=== PATIENT | female | born 1980 | race Hispanic/Latino ===

== ENCOUNTER 2025-06-06 08:33 | Outpatient (CLI) | payer OTHER ==
[2025-06-06 10:17] LABS: Hematocrit 40.5 % (34.9-44.5); Hemoglobin 12.2 g/dL (12.0-15.5); Mean Corpuscular Hemoglobin 24.7 pg (27.0-33.0); Mean Corpuscular Volume 82.0 fL (81.6-98.3); Platelet Count 431 10x3/uL (150-450); Red Blood Cell (RBC) Count 4.94 10x6/uL (3.90-5.03); White Blood Cell (WBC) Count 7.58 10x3/uL (3.5-10.5)
[2025-06-06 10:19] LABS: Pregnancy Test - Urine (BHCG) Negative (Negative); Pregu Control Bar Appear? YES (CONTROL BAR)
[2025-06-06 10:20] LABS: Pregu Control Background? CLEAR/WHITE (CLR/WHITE)
[2025-06-06 10:34] LABS: Anion Gap 11 mmol/L (10-20); BUN (Urea Nitrogen) 17 mg/dL (7.0-18.7); Calc. Creatinine Clearance 0 mL/min (70-130); Calcium 9.3 mg/dL (7.8-10.44); Carbon Dioxide 26 mmol/L (22-29); Chloride 106 mmol/L (98-107); Glucose 89 mg/dL (70-105); Potassium 4.4 mmol/L (3.5-5.1); Sodium 139 mmol/L (136-145)
== END 2025-06-06 08:34 | disposition home or self-care (01) ==
LOC: CSHLAB 08:33
PROVIDERS: ATTEND Obstetrics & Gynecology
DX: Z01.818 Encounter for other preprocedural examination (principal); R10.2 Pelvic and perineal pain; D25.9 Leiomyoma of uterus, unspecified
CPT/HCPCS: 80048; 81025; 85027; 93005; 93010

== ENCOUNTER 2025-06-16 09:15 | Observation (INO) | payer OTHER ==
[2025-06-06 09:15] VITALS: BMI 39.0
[2025-06-16] MEDS ORDERED: Heparin 5,000 UNITS/ML VIAL ONE (09:40)
[2025-06-16] MEDS ORDERED: PROPOFOL 20 ML ONE (10:42)
[2025-06-16] MEDS ORDERED: Bupivacaine HCl 0.5%/Epinephrine 1:200,000/PF 30 ml Vial ONE (11:22)
[2025-06-16] MEDS ORDERED: CEFAZOLIN 2 GM VIAL ONE (12:11)
[2025-06-16] MEDS ORDERED: PHENYLEPHRINE-NS 100 MCG/ML 10 ML SYRINGE ONE (13:09)
[2025-06-16] MEDS ORDERED: Ondansetron PF 4 MG/2 ML Vial ONE (13:21)
[2025-06-16] MEDS ORDERED: SUGAMMADEX SODIUM 200 MG/2 ML VIAL ONE (13:21)
[2025-06-16] MEDS ORDERED: Ketorolac Tromethamine 30 MG (1 mL) VIAL ONE (13:23)
[2025-06-16] MEDS ORDERED: diphenhydrAMINE 50 MG/ML VIAL IVP PRN (16:07)
[2025-06-16] MEDS ORDERED: Simethicone Chewable 80 MG TAB PO PRN (16:07)
[2025-06-16] MEDS: HYDROcodone/Acetaminophen 10/325 mg Tablet PO SCH (16:41)
[2025-06-16] MEDS: Ketorolac Tromethamine 30 MG (1 mL) VIAL IVP SCH (19:49)
[2025-06-17 04:34] VITALS: BP 92/52; TEMP 98.5
[2025-06-17 07:01] LABS: Hematocrit 35.8 % (34.9-44.5); Hemoglobin 10.7 g/dL (12.0-15.5); Mean Corpuscular Hemoglobin 24.6 pg (27.0-33.0); Mean Corpuscular Volume 82.3 fL (81.6-98.3); Platelet Count 337 10x3/uL (150-450); Red Blood Cell (RBC) Count 4.35 10x6/uL (3.90-5.03); White Blood Cell (WBC) Count 13.49 10x3/uL (3.5-10.5)
[2025-06-17] MEDS: Ondansetron PF 4 MG/2 ML Vial IVP PRN (09:17)
[2025-06-17] MEDS: Ergocalciferol 1.25 MG(50,000 UNITS) CAP PO SCH ×2 (09:50→11:57)
[2025-06-18] MEDS ORDERED: Multivit, Therapeutic 1 TAB PO SCH (09:00)
== END 2025-06-17 12:10 | disposition home or self-care (01) ==
LOC: CSHSDC 09:15 → CSHPP 15:48
PROVIDERS: ADMIT Obstetrics & Gynecology; ATTEND Obstetrics & Gynecology
PROC: 0UT74ZZ Resection of Bilateral Fallopian Tubes, Percutaneous Endoscopic Approach (ICD-10-PCS; principal; 2025-06-16)
PROC: 0UT24ZZ Resection of Bilateral Ovaries, Percutaneous Endoscopic Approach (ICD-10-PCS; principal; 2025-06-16)
PROC: 0UT94ZZ Resection of Uterus, Percutaneous Endoscopic Approach (ICD-10-PCS; principal; 2025-06-16)
DX: D25.9 Leiomyoma of uterus, unspecified (principal); N72 Inflammatory disease of cervix uteri; E11.9 Type 2 diabetes mellitus without complications; N93.9 Abnormal uterine and vaginal bleeding, unspecified; N83.11 Corpus luteum cyst of right ovary; N83.8 Other noninflammatory disorders of ovary, fallopian tube and broad ligament; N88.8 Other specified noninflammatory disorders of cervix uteri; Z98.890 Other specified postprocedural states; Z88.4 Allergy status to anesthetic agent; Z79.85 Long-term (current) use of injectable non-insulin antidiabetic drugs
CPT/HCPCS: 36415; 85027; 88307; J1100; J1644; J1885; J2704; S2900